=== PATIENT | male | born 1945 | race African-American/Black ===

== ENCOUNTER 2018-08-09 11:14 | Outpatient (CLI) | payer MEDICARE ==
--- NOTE | 2018-08-09 13:14 | RAD ---
RIGHT SHOULDER RADIOGRAPHS THREE VIEWS: 08/09/2018 PROVIDED CLINICAL HISTORY: Right shoulder pain. FINDINGS: Acromioclavicular joint osteoarthrosis is demonstrated. No evidence for fracture. The subacromial s pace appears mildly narrowed. The visualized right lung field appears clear. IMPRESSION: Acromioclavicular joint osteoarthrosis. Mild narrowing of the subacromial space may reflect rotator cuff insufficiency. POS: CODY
== END 2018-08-09 11:15 | disposition home or self-care (01) ==
LOC: NAV RAD 11:14
PROVIDERS: ATTEND Nurse Practitioner Adult Health
DX: M25.511 Pain in right shoulder (principal); M19.011 Primary osteoarthritis, right shoulder; M25.811 Other specified joint disorders, right shoulder

== ENCOUNTER 2018-11-22 09:42 | Outpatient (CLI) | payer MEDICARE ==
--- NOTE | 2018-11-22 10:12 | CT ---
[facility] COMPARISON: None HISTORY: Asbestos exposure, dyspnea TECHNIQUE: Axial CT imaging at 5 mm intervals from the thoracic inlet through the upper abdomen witho ut contrast. Coronal reformatted imaging obtained. FINDINGS: The lack of contrast media limits assessment of the vascular structures, the imaged viscera , and for lymphadenopathy. Limited assessment of the chest for lymphadenopathy appears unremarkable. Upper abdomen demonstrates atherosclerotic calcification of the imaged abdominal aorta and its branch es. Partially imaged diffuse colonic diverticulosis present. There is a right renal cyst measuring 3 cm in transverse dimension. No significant pleural, pericardial, or mediastinal fluid. Scattered atherosclerotic calcification of the thoracic aorta and the coronary arteries noted. No pneumothorax is evident on either side. Mild subpleural emphysematous changes are noted within the medial aspect of the left upper lobe. 2 ti ny pulmonary nodules are noted within the left upper lobe on images 16 and 17 measuring less than 3 m m. No additional pulmonary parenchymal nodules are noted on the left. Mild increased linear interstitial density noted within the inferior aspect of the left lower lobe coronel ggesting scar or volume loss. No dominant pulmonary parenchymal mass lesion or nodule noted on the right. No discrete pleural plaqu e formation noted on either side. Review of the osseous structures demonstrates no worrisome lytic or blastic lesions. Multilevel thora cic spine and a lateral osteophyte formation. Significant incompletely imaged lower cervical spine de generative change. IMPRESSION: Chronic appearing findings as detailed above. No acute findings are seen.
== END 2018-11-22 09:43 | disposition home or self-care (01) ==
LOC: NAV CT 09:42
PROVIDERS: ATTEND Nurse Practitioner Adult Health
DX: R06.00 Dyspnea, unspecified (principal); R59.0 Localized enlarged lymph nodes; I70.0 Atherosclerosis of aorta; N28.1 Cyst of kidney, acquired; R91.8 Other nonspecific abnormal finding of lung field; I25.10 Atherosclerotic heart disease of native coronary artery without angina pectoris; Z77.090 Contact with and (suspected) exposure to asbestos
CPT/HCPCS: 71250

== ENCOUNTER 2021-02-11 11:04 | Emergency (ER) | payer MEDICARE ==
[2021-02-11 11:56] LABS: ALT (SGPT) 17 U/L (8-55); AST (SGOT) 16 U/L (5-34); Albumin 3.9 g/dL (3.4-4.8); Alkaline Phosphatase 80 U/L (40-110); Anion Gap 10 mmol/L (10-20); BUN (Urea Nitrogen) 11 mg/dL (8.4-25.7); Bilirubin, Total 0.4 mg/dL (0.2-1.2); Calc. Creatinine Clearance 0 mL/min (70-130); Calcium 8.7 mg/dL (7.8-10.44); Carbon Dioxide 25 mmol/L (23-31); Chloride 106 mmol/L (98-107); Globulin 3.3 g/dL (2.4-3.5); Glucose 97 mg/dL (83-110); Hemoglobin 13.7 g/dL (14.0-18.0); Mean Corpuscular HGB CONC 30.6 g/dL (32.0-36.0); Mean Platelet Volume 8.8 fL (7.4-10.4); Platelet Count 213 thou/uL (130-400); Potassium 3.4 mmol/L (3.5-5.1); Protein, Total 7.2 g/dL (5.8-8.1); RBC Distribution Width 13.4 % (11.5-14.5); Red Blood Cell (RBC) Count 5.07 mill/uL (4.70-6.10); Sodium 138 mmol/L (136-145); White Blood Cell (WBC) Count 4.7 thou/uL (4.8-10.8)
[2021-02-11 11:57] LABS: Eosinophils 2 % (0-10); Lymphocytes 44 % (21-51); MDiff Complete? YES; Monocytes 7 % (0-10); Neutrophil 47 % (42-75); Platelet Morphology Comment Appears Adequate
== END 2021-02-11 11:56 | disposition home or self-care (01) ==
LOC: NAV ERS 11:04
DX: H81.13 Benign paroxysmal vertigo, bilateral (principal); I10 Essential (primary) hypertension; F17.210 Nicotine dependence, cigarettes, uncomplicated; Z79.899 Other long term (current) drug therapy
CPT/HCPCS: 80053; 85025; 93005

== ENCOUNTER 2023-01-01 19:21 | Emergency (ER) | payer MEDICARE ==
[2023-01-01] MEDS ORDERED: Famotidine 20 MG TAB ONE (20:13)
[2023-01-01] MEDS ORDERED: Ketorolac Tromethamine 30 MG/ML VIAL ONE (20:13)
== END 2023-01-01 20:21 | disposition home or self-care (01) ==
LOC: NAV ERS 19:21
DX: M25.572 Pain in left ankle and joints of left foot (principal); I10 Essential (primary) hypertension; F17.210 Nicotine dependence, cigarettes, uncomplicated; Z79.899 Other long term (current) drug therapy
CPT/HCPCS: 96372; 99282; J1885